=== PATIENT | female | born 1980 | race Hispanic/Latino ===

== ENCOUNTER 2022-03-24 12:25 | Emergency (ER) | payer OTHER, SELFPAY ==
[2022-03-24 13:04] VITALS: BP 169/23; PULSE 123; RESP 18; TEMP 36.4; O2SAT 98
--- NOTE | 2022-03-24 13:14 | PC.NURSE ---
took one antibiotic patient had at home this morning for concerns of UTI due to smell
[2022-03-24 14:08] LABS: Bacteria Urine Many (>30); Culture Indicated Urine Specimen Cultured; RBC Urine 10-30/HPF (0-5/HPF); Squamous Epithelial Cell Urine 1-5 /HPF (0-5/HPF); WBC Urine 30-100/HPF (0-5/HPF)
[2022-03-24 14:25] LABS: Add Manual Diff / Slide Review NO; Basophils Absolute Auto 100 /uL (0-100); Basophils Percent Auto 0.7 % (0-2); Eosinophils Absolute Auto 100 /uL (0-450); Eosinophils Percent Auto 1.1 % (2-4); Hematocrit 40.3 % (36-46); Hemoglobin 12.9 g/dL (12.0-16.0); Lymphocytes Absolute Auto 2200 /uL (1100-4500); Lymphocytes Percent Auto 24.8 % (25-40); Mean Corpuscular Hemoglobin 27.4 PG (26-34); Mean Corpuscular Volume 85.6 fL (80-100); Monocytes Absolute Auto 600 /uL (0-900); Monocytes Percent Auto 7.2 % (3-14); Neutrophils Absolute Auto 5800 /uL (1500-7000); Neutrophils Percent Auto 66.2 % (50-75); Platelet Count 232 X10^3/uL (150-400); Red Blood Cell Count 4.71 X10^6/uL (4.0-5.2); Red Cell Distribution Width 15.2 % (11.6-14.8); White Blood Cell Count 8.8 X10^3/uL (4.5-11.0)
[2022-03-24 14:43] LABS: BUN Creatinine Ratio 17.4 (6-22); Blood Urea Nitrogen 12 mg/dL (7-17); Carbon Dioxide 26 mmol/L (22-32); Chloride 109 mmol/L (98-107); Estimated Glomerular Filt Rate > 60 mL/min (>60); Glucose 97 mg/dL (70-100); HEMOLYSIS < 15 (0-50); Sodium 142 mmol/L (137-145)
== END 2022-03-24 15:03 | disposition left against medical advice (07) ==
PROVIDERS: Emergency Provider Family Medicine Addiction Medicine
DX: N93.9 Abnormal uterine and vaginal bleeding, unspecified (principal); D64.9 Anemia, unspecified
CPT/HCPCS: 36415; 80048; 81003; 81015; 81025; 85025; 87077; 87086; 87186; 99282

== ENCOUNTER 2022-11-07 22:30 | Emergency (ER) | payer OTHER, MEDICAID, SELFPAY ==
[2022-11-07 22:32] VITALS: BP 177/90; PULSE 110; RESP 16; TEMP 37.1; O2SAT 99; BMI 30.7
--- NOTE | 2022-11-08 00:29 | PC.NURSE ---
Patient visualized leaving room five without notifying staff and then visualized leaving through ED doors by registration.
== END 2022-11-08 00:29 | disposition left against medical advice (07) ==
PROVIDERS: Emergency Provider Emergency Medicine; PCP Nurse Practitioner
DX: M54.50 Low back pain, unspecified (principal)
CPT/HCPCS: 99281

== ENCOUNTER 2023-07-15 15:37 | Emergency (ER) | payer OTHER, MEDICAID, SELFPAY ==
[2023-07-15] VITALS (13 sets, daily range): BP systolic 127–162; BP diastolic 63–89; PULSE 76–90; RESP 17–23; TEMP 36.8; O2SAT 95–100; BMI 30.7
--- NOTE | 2023-07-15 15:44 | DI.RAD.S_ITS ---
PROCEDURE: XR CHEST 1V INDICATIONS: chest pain TECHNIQUE: One view of the chest was acquired. COMPARISON: None. FINDINGS: Surgical changes and devices: None. Lungs and pleura: Lungs are clear. No pleural effusions or pneumothorax. Mediastinum: Mediastinal contours appear normal. Heart size is normal. Bones and chest wall: No suspicious bony lesions. Overlying soft tissues appear unremarkable. IMPRESSION: No acute cardiopulmonary abnormality is seen. Dictated by: Robles Ortez M.D. on 07/15/2023 at 17:06 Approved by: Robles Ortez M.D. on 07/15/2023 at 17:09
--- NOTE | 2023-07-15 16:02 | PC.NURSE ---
Pt came to the ED today via [facility] because she has been having ongoing worsensing cp. Pt describes cp as a pressure in her mid chest and like she has a throbbing pain that radiates to her neck, left jaw and down her left arm. Pt rates pain as a 7/10. States that she has been experiencing this pain off and on for the last year. Pt has seen cardiology and had zio monitor but never followed up because monitor fell off. 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 Pt reports that when her heart rate races and begins to feel cp, she also feels SOB. Pt a&ox4. 98%on RA. HR 85. Pt overall demeanor tearful and anxious.
[2023-07-15 16:12] LABS: Add Manual Diff / Slide Review NO; Basophils Absolute Auto 100 /uL (0-100); Basophils Percent Auto 0.8 % (0-2); Eosinophils Absolute Auto 100 /uL (0-450); Eosinophils Percent Auto 1.5 % (2-4); Hemoglobin 12.9 g/dL (12.0-16.0); Lymphocytes Absolute Auto 2500 /uL (1100-4500); Lymphocytes Percent Auto 35.7 % (25-40); Mean Corpuscular HGB Conc 33.1 % (30-36); Mean Corpuscular Hemoglobin 29.4 PG (26-34); Mean Corpuscular Volume 88.6 fL (80-100); Monocytes Absolute Auto 600 /uL (0-900); Neutrophils Absolute Auto 3700 /uL (1500-7000); Platelet Count 251 X10^3/uL (150-400); Red Cell Distribution Width 13.5 % (11.6-14.8)
[2023-07-15 16:17] LABS: Prothrombin Time 11.4 SECONDS (9.4-12.5)
[2023-07-15 16:19] LABS: PTT Partial Thromboplastin Tim 34 SECONDS (25.1-36.5)
[2023-07-15 16:22] LABS: Alanine Aminotransferase 18 IU/L (<35); Albumin 3.8 g/dL (3.5-5.0); Albumin Globulin Ratio 1.2 (1.0-2.8); Alkaline Phosphatase 68 U/L (38-126); Aspartate Aminotransferase 27 IU/L (14-36); BUN Creatinine Ratio 19.2 (6-22); Bilirubin Total 0.6 mg/dL (0.2-1.3); Blood Urea Nitrogen 14 mg/dL (7-17); Calcium 8.8 mg/dL (8.4-10.2); Carbon Dioxide 22 mmol/L (22-32); Chloride 108 mmol/L (98-107); Creatine Kinase 67 U/L (30-135); Estimated Glomerular Filt Rate > 60 mL/min (>60); Globulin 3.1 g/dL (1.7-4.1); Glucose 138 mg/dL (70-100); HEMOLYSIS < 15 (0-50); Lipase 96 U/L (23-300); Magnesium 2.1 mg/dL (1.6-2.3); Potassium 3.1 mmol/L (3.4-5.1); Sodium 140 mmol/L (137-145); Total Protein 6.9 g/dL (6.3-8.2)
[2023-07-15 16:33] LABS: Troponin I < 0.012 ng/mL (0.01-0.034)
[2023-07-15] MEDS: ACETAMINOPHEN 325 MG TABLET 975 MG PO (17:25)
[2023-07-15] MEDS: METOCLOPRAMIDE 10 MG/2 ML INJ IV (17:26)
[2023-07-15] MEDS: MORPHINE 2 MG/ML INJ 1 MG IV (17:26)
[2023-07-15] MEDS: diphenhydrAMINE 50 MG/ML VIAL 25 MG IV (17:30)
--- NOTE | 2023-07-15 17:37 | ED_ITS ---
HPI - Chest Pain <Raine Ring PA-C - Last Filed: 07/15/23 19:00> General Chief Complaint: Chest Pain Stated Complaint: Chest pressure/headache Time Seen by Provider: 07/15/23 16:54 Source: patient and EMS Mode of arrival: EMS Limitations: no limitations History of Present Illness HPI narrative: Patient is a 42-year-old female with a past medical history of type 2 diabetes, reports she is only currently taking metformin because of intolerance to the other medications, and reports a history of ongoing chest pain and palpitations for at least 1 year. She presents today with a headache and chest pain with onset at 1:00 a.m. last night. She has not taken any medications for this. The headache originates in the occiput and wraps around her jaw. She feels mildly nauseous but has not vomited. She denies tinnitus, photophobia or vertigo. The headache had a gradual onset and is currently 8/10. She also complains of chest pain, which is similar to her chronic chest pain. It seems she has not had a workup for this with Cardiology. She has no cough, no hemoptysis. She denies any history of reflux. She endorses current and ongoing stressors in her life. She also complains of bilateral kidney pain, right greater than left, which has been ongoing for weeks but worse recently. She attributes this to her diabetes. She denies any urinary symptoms, changes in her urine or blood in her urine. Related Data Home Medications Medication Instructions Recorded Confirmed lisinopril 10 1 tab PO QAM 07/15/23 07/15/23 mg-hydrochlorothiazide 12.5 mg tablet metformin 500 mg tablet,extended 500 mg PO BID 07/15/23 07/15/23 release 24 hr Allergies Allergy/AdvReac Type Severity Reaction Status Date / Time No Known Drug Allergies Allergy Verified 07/15/23 15:55 Review of Systems <Raine Ring PA-C - Last Filed: 07/15/23 19:00> Review of Systems ROS Unobtainable: All systems reviewed & are unremarkable except as noted in HPI and below Patient History <Raine Ring PA-C - Last Filed: 07/15/23 19:00> Social History Smoking Status: Never smoker Smoking Status: Never smoker alcohol intake frequency: a few times a month Substance Use Type: marijuana Exam <Raine Ring PA-C - Last Filed: 07/15/23 19:00> Narrative Exam Narrative: GENERAL: 42 year old patient appears stated age. Well-developed patient, in mild distress. NEURO: AOx3. Patient is alert and oriented x3 and with normal mood and affect. Cranial nerves II through XII are intact and there is no appreciable numbness or weakness in 4 extremities. HEAD: Atraumatic. Normocephalic. EYES: Pupils equal round and reactive. Extraocular motions intact. No scleral icterus. No injection or drainage. ENT: Nose without bleeding or purulent drainage. Airway patent. CARDIOVASCULAR: Regular rate and rhythm without murmurs, gallops, or rubs. RESPIRATORY: Clear to auscultation. Breath sounds equal bilaterally. No wheezes, rales, or rhonchi. SKIN: No rash or erythema of visible areas Initial Vital Signs Initial Vital Signs: Vital Signs Temperature 98.2 F 07/15/23 15:05 Pulse Rate 85 07/15/23 15:05 Respiratory Rate 17 07/15/23 15:05 Blood Pressure 162/89 H 07/15/23 15:05 Pulse Oximetry 99 07/15/23 15:05 Oxygen Delivery Method Room Air 07/15/23 15:05 <Merlyn Coronado DO - Last Filed: 07/16/23 15:33> Initial Vital Signs Initial Vital Signs: Vital Signs Temperature 98.2 F 07/15/23 15:05 Pulse Rate 85 07/15/23 15:05 Respiratory Rate 17 07/15/23 15:05 Blood Pressure 162/89 H 07/15/23 15:05 Pulse Oximetry 99 07/15/23 15:05 Oxygen Delivery Method Room Air 07/15/23 15:05 Scores <Raine Ring PA-C - Last Filed: 07/15/23 19:00> Wells' Criteria for PE Clinical signs and symptoms of DVT: No PE is #1 Dx or equally likely: No Heart rate > 100: No Immobilization at least 3 days or surg in previous 4 weeks: No History of PE or DVT: No Hemoptysis: No Malignancy w/Treatment within 6 months or palliative: No Wells' PE Score total: 0 <Merlyn Coronado DO - Last Filed: 07/16/23 15:33> Wells' Criteria for PE Wells' PE Score total: 0 Course <Raine Ring PA-C - Last Filed: 07/15/23 19:00> Orders Ordered: Discontinued Medications Acetaminophen (Acetaminophen 325 Mg Tablet) 975 mg PO NOW ONE Stop: 07/15/23 17:07 Last Admin: 07/15/23 17:25 Dose: 975 mg Documented By: OLVIN Aspirin (Aspirin 81 Mg Chew Tab) 324 mg PO NOW ONE Stop: 07/15/23 15:44 Last Admin: 07/15/23 15:55 Dose: Not Given Documented By: ERNESTINE Diphenhydramine HCl (Diphenhydramine 50 Mg/Ml Vial) 25 mg IV NOW ONE Stop: 07/15/23 17:07 Last Admin: 07/15/23 17:30 Dose: 25 mg Documented By: OLVIN Metoclopramide HCl (Metoclopramide 10 Mg/2 Ml Inj) 10 mg IV NOW ONE Stop: 07/15/23 17:07 Last Admin: 07/15/23 17:26 Dose: 10 mg Documented By: OLVIN Morphine Sulfate (Morphine 2 Mg/Ml Inj) 1 mg IV NOW ONE Stop: 07/15/23 17:07 Last Admin: 07/15/23 17:26 Dose: 1 mg Documented By: OLVIN Potassium Chloride (Potassium Chloride 20 Meq Tab) 20 meq PO NOW ONE Stop: 07/15/23 18:10 Last Admin: 07/15/23 18:24 Dose: 20 meq Documented By: OLVIN Vital Signs Vital signs: Vital Signs - 8 hr 07/15/23 15:05 Temperature 98.2 F Pulse Rate 85 Respiratory Rate 17 Blood Pressure 162/89 H Pulse Oximetry 99 Oxygen Delivery Method Room Air <Merlyn Coronado DO - Last Filed: 07/16/23 15:33> Orders Ordered: Discontinued Medications Acetaminophen (Acetaminophen 325 Mg Tablet) 975 mg PO NOW ONE Stop: 07/15/23 17:07 Last Admin: 07/15/23 17:25 Dose: 975 mg Documented By: OLVIN Aspirin (Aspirin 81 Mg Chew Tab) 324 mg PO NOW ONE Stop: 07/15/23 15:44 Last Admin: 07/15/23 15:55 Dose: Not Given Documented By: ERNESTINE Diphenhydramine HCl (Diphenhydramine 50 Mg/Ml Vial) 25 mg IV NOW ONE Stop: 07/15/23 17:07 Last Admin: 07/15/23 17:30 Dose: 25 mg Documented By: OLVIN Metoclopramide HCl (Metoclopramide 10 Mg/2 Ml Inj) 10 mg IV NOW ONE Stop: 07/15/23 17:07 Last Admin: 07/15/23 17:26 Dose: 10 mg Documented By: MPO Morphine Sulfate (Morphine 2 Mg/Ml Inj) 1 mg IV NOW ONE Stop: 07/15/23 17:07 Last Admin: 07/15/23 17:26 Dose: 1 mg Documented By: OLVIN Potassium Chloride (Potassium Chloride 20 Meq Tab) 20 meq PO NOW ONE Stop: 07/15/23 18:10 Last Admin: 07/15/23 18:24 Dose: 20 meq Documented By: OLVIN Vital Signs Vital signs: Vital Signs - 8 hr 07/15/23 15:05 Temperature 98.2 F Pulse Rate 85 Respiratory Rate 17 Blood Pressure 162/89 H Pulse Oximetry 99 Oxygen Delivery Method Room Air MDM - Chest Pain <Raine Ring PA-C - Last Filed: 07/15/23 19:00> Lab Data 07/15/23 15:59 07/15/23 15:59 Labs: Lab Results 07/15/23 07/15/23 Range/Units 15:59 18:03 WBC 7.0 (4.5-11.0) X10^3/uL RBC 4.40 (4.0-5.2) X10^6/uL Hgb 12.9 (12.0-16.0) g/dL Hct 39.0 (36-46) % MCV 88.6 (80-100) fL MCH 29.4 (26-34) PG MCHC 33.1 (30-36) % RDW 13.5 (11.6-14.8) % Plt Count 251 (150-400) X10^3/uL Neut % (Auto) 53.0 (50-75) % Lymph % (Auto) 35.7 (25-40) % [place] % (Auto) 9.0 (3-14) % Eos % (Auto) 1.5 L (2-4) % Baso % (Auto) 0.8 (0-2) % Neut # (Auto) 3700 (9336-6380) /uL Lymph # (Auto) 2500 (4629-3332) /uL [place] # (Auto) 600 (0-900) /uL Eos # (Auto) 100 (0-450) /uL Baso # (Auto) 100 (0-100) /uL PT 11.4 (9.4-12.5) SECONDS INR 1.0 (0.9-1.3) APTT 34 (25.1-36.5) SECONDS Sodium 140 (137-145) mmol/L Potassium 3.1 L (3.4-5.1) mmol/L Chloride 108 H (98-107) mmol/L Carbon Dioxide 22 (22-32) mmol/L BUN 14 (7-17) mg/dL Creatinine 0.73 (0.52-1.04) mg/dL Estimated GFR > 60 (>60) mL/min BUN/Creatinine Ratio 19.2 (6-22) Glucose 138 H (70-100) mg/dL Calcium 8.8 (8.4-10.2) mg/dL Magnesium 2.1 (1.6-2.3) mg/dL Total Bilirubin 0.6 (0.2-1.3) mg/dL AST 27 (14-36) IU/L ALT 18 (<35) IU/L Alkaline Phosphatase 68 (38-126) U/L Total Creatine Kinase 67 (30-135) U/L Troponin I < 0.012 (0.01-0.034) ng/mL Total Protein 6.9 (6.3-8.2) g/dL Albumin 3.8 (3.5-5.0) g/dL Globulin 3.1 (1.7-4.1) g/dL Albumin/Globulin Ratio 1.2 (1.0-2.8) Lipase 96 (23-300) U/L Urine Color Yellow Urine Appearance Clear Urine pH 7.0 (4.5-8.0) Ur Specific [place] 1.010 (1.000-1.035) Urine Protein 1+ H (Negative) Urine Glucose (UA) 3+ H (Negative) g/dL Urine Ketones Negative (NEGATIVE) Urine Occult Blood 3+ H (Negative) Urine Nitrate Negative (Negative) Urine Bilirubin Negative (NEGATIVE) Urine Urobilinogen 0.2 (0.2) E.U./dL Ur Leukocyte Esterase Negative (NEGATIVE) Urine RBC 10-30/hpf H (0-5/HPF) Urine WBC 0-1/hpf (0-5/HPF) Ur Squamous Epith Cells 0-1 /hpf (0-5/HPF) Urine Bacteria None seen (None) Vol Urine Centrifuged 10ml (spun) Imaging Data Chest x-ray: Radiologist's Impression: PROCEDURE: XR CHEST 1V INDICATIONS: chest pain TECHNIQUE: One view of the chest was acquired. COMPARISON: None. FINDINGS: Surgical changes and devices: None. Lungs and pleura: Lungs are clear. No pleural effusions or pneumothorax. Mediastinum: Mediastinal contours appear normal. Heart size is normal. Bones and chest wall: No suspicious bony lesions. Overlying soft tissues appear unremarkable. IMPRESSION: No acute cardiopulmonary abnormality is seen. Dictated by: Robles Ortez M.D. on 07/15/2023 at 17:06 Approved by: Robles Ortez M.D. on 07/15/2023 at 17:09 [facility] Narrative Medical decision making narrative: Multiple etiologies for patient's symptoms considered including, but not limited to: Tension headache, migraine headache, ACS, atypical chest pain, GERD, panic attack, pneumonia, PE Labs including CBC, coagulation panel, chemistry and troponin without clinically significant abnormality aside from a mild hypokalemia of 3.1. Her glucose is 138. Troponin is negative. Chest x-ray within normal limits, EKG reassuring. Wells PE score 0, low risk. Patient has received 1 L of normal saline, we will attempt to break the headache with a migraine cocktail. Check urine for evidence of infection. Headache resolved after migraine medications. Patient hungry and eating vigorously. Patient able to ambulate steadily to the bathroom to leave a urine sample; urine with 3+ glucose, 1+ protein and blood. No evidence of infection. Advised patient to follow up with her primary care. She currently reports not taking Jardiance or her other antidiabetic medication because they do not make her feel good. She is only on 500 mg of metformin twice a day. Her blood sugar is elevated and she is spilling sugar in her urine. She needs better diabetes control. She also needs to follow up with a sales representative advertising; she reports her primary care has already sent a referral. Patient discharged, understands discharge instructions and return precautions. Patient's symptoms improved over duration of stay with above-stated therapies. Findings and discharge diagnosis discussed with patient/family followed by verbalization of understanding Return precautions discussed with patient/family whom verbalize understanding of diagnosis and plan <Merlyn Coronado, DO - Last Filed: 07/16/23 15:33> Lab Data Labs: Lab Results 07/15/23 07/15/23 Range/Units 15:59 18:03 WBC 7.0 (4.5-11.0) X10^3/uL RBC 4.40 (4.0-5.2) X10^6/uL Hgb 12.9 (12.0-16.0) g/dL Hct 39.0 (36-46) % MCV 88.6 (80-100) fL MCH 29.4 (26-34) PG MCHC 33.1 (30-36) % RDW 13.5 (11.6-14.8) % Plt Count 251 (150-400) X10^3/uL Neut % (Auto) 53.0 (50-75) % Lymph % (Auto) 35.7 (25-40) % [place] % (Auto) 9.0 (3-14) % Eos % (Auto) 1.5 L (2-4) % Baso % (Auto) 0.8 (0-2) % Neut # (Auto) 3700 (9789-3966) /uL Lymph # (Auto) 2500 (5487-6434) /uL [place] # (Auto) 600 (0-900) /uL Eos # (Auto) 100 (0-450) /uL Baso # (Auto) 100 (0-100) /uL PT 11.4 (9.4-12.5) SECONDS INR 1.0 (0.9-1.3) APTT 34 (25.1-36.5) SECONDS Sodium 140 (137-145) mmol/L Potassium 3.1 L (3.4-5.1) mmol/L Chloride 108 H (98-107) mmol/L Carbon Dioxide 22 (22-32) mmol/L BUN 14 (7-17) mg/dL Creatinine 0.73 (0.52-1.04) mg/dL Estimated GFR > 60 (>60) mL/min BUN/Creatinine Ratio 19.2 (6-22) Glucose 138 H (70-100) mg/dL Calcium 8.8 (8.4-10.2) mg/dL Magnesium 2.1 (1.6-2.3) mg/dL Total Bilirubin 0.6 (0.2-1.3) mg/dL AST 27 (14-36) IU/L ALT 18 (<35) IU/L Alkaline Phosphatase 68 (38-126) U/L Total Creatine Kinase 67 (30-135) U/L Troponin I < 0.012 (0.01-0.034) ng/mL Total Protein 6.9 (6.3-8.2) g/dL Albumin 3.8 (3.5-5.0) g/dL Globulin 3.1 (1.7-4.1) g/dL Albumin/Globulin Ratio 1.2 (1.0-2.8) Lipase 96 (23-300) U/L Urine Color Yellow Urine Appearance Clear Urine pH 7.0 (4.5-8.0) Ur Specific [place] 1.010 (1.000-1.035) Urine Protein 1+ H (Negative) Urine Glucose (UA) 3+ H (Negative) g/dL Urine Ketones Negative (NEGATIVE) Urine Occult Blood 3+ H (Negative) Urine Nitrate Negative (Negative) Urine Bilirubin Negative (NEGATIVE) Urine Urobilinogen 0.2 (0.2) E.U./dL Ur Leukocyte Esterase Negative (NEGATIVE) Urine RBC 10-30/hpf H (0-5/HPF) Urine WBC 0-1/hpf (0-5/HPF) Ur Squamous Epith Cells 0-1 /hpf (0-5/HPF) Urine Bacteria None seen (None) Vol Urine Centrifuged 10ml (spun) ECG Data Attestation: I personally reviewed and interpreted this ECG as follows: Interpretation: Ivonne-normal sinus rhythm rate 87 OR interval 150 QRS [address] changes no T-wave inversions no priors to Discharge Plan Departure Patient Disposition: Home Clinical Impression: Atypical chest pain Migraine Qualifiers: Migraine type: unspecified Status migrainosus presence: without status migrainosus Intractability: not intractable Qualified Code(s): G43.909 - Migraine, unspecified, not intractable, without status migrainosus Instructions: DI for Atypical Chest Pain Activity Restrictions/Additional Instructions: *You have been diagnosed with migraine headache and atypical chest pain. There is no evidence of ischemia in your heart. Your chest x-ray was normal. Your labs are reassuring. Your potassium was a little bit low and you were given a dose of potassium in the emergency room. I would suggest eating potassium rich foods over the next several days such as bananas. Your headache is resolved with the medications we gave gave you today. If your headache continues, I would advise taking Tylenol and ibuprofen and drinking plenty of water. Your urine does not appear infected but does have significant glucose, which is a sign of poorly controlled diabetes. I would talk to your primary care about changing your diabetes medicines of the you have better control. I would strongly advise you to follow up with the referral you have from your primary care to Cardiology to further evaluate your reported palpitations and atypical chest pain. *What to do: *Please continue to take your regular medications as directed. [ ] New medication prescriptions sent to your pharmacy: [ ] [ ] New medication written as a paper prescription [x] No new medications given *Please follow up with your primary care provider in 2-3 days, call for an appointment. Let them know you were seen in the Emergency Department and that we ask that you be seen in follow up. We will electronically transmit a record of today's note if your PCP is in our system *If you do not have a primary care provider please contact the [facility] Resource line at [phone]. They will ask some questions about your medical history and help get you set up with a doctor in the community. *Return to Emergency Department if you should have any new, worsening or concerning symptoms, such as [fever greater than 101 F, shaking chills, worsening pain, persistent vomiting or other concerning symptoms]. Prescriptions: No Action lisinopril-hydrochlorothiazide 10-12.5 mg tablet 1 tab PO QAM metformin 500 mg tablet extended release 24 hr 500 mg PO BID Referrals: Stacie Lowery ARNP [Primary Care Provider] - Stand Alone Forms: Patient Portal/API ED Sign-out <Merlyn Coronado DO - Last Filed: 07/16/23 15:33> Cosign ED Attending Pamature Attestation: I was available for consultation.
[2023-07-15] MEDS: POTASSIUM CHLORIDE 20 MEQ TAB PO (18:24)
[2023-07-15 18:50] LABS: Appearance Urine UA CLEAR; Bilirubin Urine UA NEGATIVE (NEGATIVE); Color Urine UA YELLOW; Glucose Urine UA 3+ g/dL (Negative); Ketones Urine UA NEGATIVE (NEGATIVE); Leukocyte Esterase Urine UA NEGATIVE (NEGATIVE); Nitrite Urine UA NEGATIVE (Negative); Occult Blood Urine UA 3+ (Negative); Protein Urine UA 1+ (Negative); Urobilinogen Urine UA 0.2 E.U./dL (0.2)
[2023-07-15 19:06] LABS: Urine Volume 10mL (spun)
[2023-07-15 19:07] LABS: Bacteria Urine None Seen; RBC Urine 10-30/HPF (0-5/HPF); Squamous Epithelial Cell Urine 0-1 /HPF (0-5/HPF); WBC Urine 0-1/HPF (0-5/HPF)
== END 2023-07-15 19:16 | disposition home or self-care (01) ==
PROVIDERS: Emergency Medicine; Emergency Provider Physician Assistant; PCP Nurse Practitioner
DX: R07.89 Other chest pain (principal); G43.909 Migraine, unspecified, not intractable, without status migrainosus
CPT/HCPCS: 36415; 71045; 80053; 81003; 81015; 82550; 83690; 83735; 84484; 85025; 85610; 85730; 93005; 96374; 96375; 99284; J1200; J2270; J2765

== ENCOUNTER → 2023-12-01 10:40 | Outpatient (CLI) | payer OTHER, SELFPAY ==
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
== END ==
PROVIDERS: PCP Nurse Practitioner; Referring Provider Physician Assistant; Visit Provider Physician Assistant
DX: S69.90XA Unspecified injury of unspecified wrist, hand and finger(s), initial encounter (principal); X58.XXXA Exposure to other specified factors, initial encounter
CPT/HCPCS: 73130